=== PATIENT | female | born 2000 | race Two or more races ===

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

== ENCOUNTER 2022-08-25 23:31 | Emergency (ER) | payer SELFPAY ==
[~2022-08-25 23:31] MED LIST changes: +FERR-7 PO; -NORPTMEDS CO; +PREN-96 PO
== END 2022-08-26 00:28 | disposition left against medical advice (07) ==
LOC: ER 23:31
DX: J45.909 Unspecified asthma, uncomplicated (principal); Z53.21 Procedure and treatment not carried out due to patient leaving prior to being seen by health care provider